=== PATIENT | male | born 1965 | race African-American/Black ===

== ENCOUNTER → 2020-11-30 | Day surgery (SDC) | payer OTHER ==
[~2020-11-30] VITALS: Ht 170.2 cm; Wt 77.1 kg
[~2020-11-30] MED LIST: AMOXICILLIN500 M1 PO; ASPIRIN EC81 M1 PO; ATORVASTATIN CA40 MG PO; LISINOPRIL-HCT1 EACH PO; SPIRONOLACTONE50 M1 PO
[2020-11-30 10:59] LABS: BASOPHIL 0.6 % (0-2); EOSINOPHIL 2.5 % (0-5); HCT 38.6 % (42.0-52.0); HGB 13.1 g/dl (13.2-18.0); LYMPHOCYTE 43.1 % (15-48); MCH 31.8 pg (25.0-31.0); MCHC 33.9 g/dL (32.0-36.0); MCV 93.7 fL (78.0-100.0); MONOCYTE 8.7 % (0-12); MPV 9.3 fL (6.0-9.5); NEUTROPHIL 44.5 % (41-80); NRBC 0; PLT 201 K/uL (150-400); RBC 4.12 M/uL (4.70-6.00); RDW 12.2 % (11.5-14.0); WBC 4.7 K/uL (4.0-10.5)
== END | disposition home or self-care (01) ==
LOC: FAS 10:07
PROVIDERS: Oral & Maxillofacial Surgery
DX: K02.9 Dental caries, unspecified (principal); K04.7 Periapical abscess without sinus; I10 Essential (primary) hypertension; F17.200 Nicotine dependence, unspecified, uncomplicated; I25.10 Atherosclerotic heart disease of native coronary artery without angina pectoris; Z95.5 Presence of coronary angioplasty implant and graft
CPT/HCPCS: 36415; 71045; 85025; J1100; J1170; J2250; J2704; J3010; J3490; J7120